=== PATIENT | female | born 1980 | race Caucasian/White ===

== ENCOUNTER 2016-02-24 14:56 | Inpatient (IN) | payer OTHER ==
[2016-02-24 15:32] LABS: MANUAL DIFF NEEDED? NO
[2016-02-24 15:33] LABS: BASO% 0.3 % (0.0-0.8); EOS# 0.16 X1000 (0.0-0.7); EOS% 1.4 % (0.0-10.0); HEMATOCRIT 32.8 % (37.0-47.0); HEMOGLOBIN 10.6 g/dL (12.0-16.0); IMM GRAN# 0.11 X1000 (0.0-0.04); IMM GRAN% 0.9 % (0.0-0.5); LYMPH# 2.35 X1000 (1.2-3.4); LYMPH% 20.1 % (20.5-51.1); MCH 24.3 PG (27-31); MCHC 32.3 g/dL (33-37); MCV 75.1 FL (81-99); MONO# 1.16 X1000 (0.11-0.59); MONO% 9.9 % (1.7-9.3); MPV 8.9 FL (7.4-10.4); NEUT% 67.4 % (42.2-75.2); PLT 479 X1000 (130-400); RBC 4.37 XMIL (4.2-5.4)
[2016-02-24 16:07] LABS: AGAP 11; ALBUMIN 3.3 g/dL (3.5-5.0); ALKALINE PHOSPHATASE 213 U/L (32-104); BUN 9 mg/dL (8-22); CALCIUM 8.6 mg/dL (8.8-10.2); CHLORIDE 102 mmol/L (98-107); COSMO 265; GOT 14 U/L (10-30); GPT 8 U/L (10-36); SODIUM 133 mmol/L (136-145); TCO2 21 mmol/L (25-35); TOTAL PROTEIN 6.6 g/dL (6.3-8.3); URIC ACID 3.6 mg/dL (2.4-5.7)
[2016-02-24] MEDS ORDERED: AMPICILLIN 2 GM/NS 100 ML IV ONE (16:18)
[2016-02-24] MEDS ORDERED: PEPCID IV PRN (16:18)
[2016-02-24] MEDS ORDERED: LR 500 ML IV ONE (16:18)
[2016-02-24] MEDS ORDERED: PEPCID PO ONE (16:18)
[2016-02-24] MEDS ORDERED: REGLAN PO ONE (16:18)
[2016-02-24] MEDS ORDERED: KEFZOL 1 GM/D5W 50 ML IV PRN (16:18)
[2016-02-24] MEDS ORDERED: PEPCID PO PRN (16:18)
[2016-02-24] MEDS ORDERED: STADOL IV PRN (16:18)
[2016-02-24] MEDS ORDERED: TYLENOL PO PRN (16:18)
[2016-02-24] MEDS ORDERED: SODIUM CHLORIDE 0.9% INJ SCH (16:30)
--- NOTE | 2016-02-24 17:27 | HISTORY AND PHYSICAL ---
CHIEF COMPLAINTS: secondary to elevated blood pressure. HISTORY OF PRESENT ILLNESS: This is a 35-year-old G2, P1-0-0-1 with IUP at 39+ 6 weeks by LMP consistent with 11+ 3 week ultrasound, EDC is 02/25/2016 who presents from clinic secondary to elevated blood pressure. The patient found to have blood pressure of 152s over 90s in clinic which she attributes to anxiety however prior this elevated blood pressure is noted as well. care thus far has been relatively uncomplicated. The patient did have positive HSV cultures little over a week ago. The patient notes a prior outbreak around 10 years ago however she has not had any outbreak since then and has not had any symptoms since that time. The patient has been at treated with acyclovir for over a week now. OBSTETRICAL HISTORY: G1, full-term vaginal delivery, G2 current. INSIDE SALES HISTORY: Denies sexually transmitted infections and notes positive abnormal Pap smears requiring cryo surgery. PAST MEDICAL HISTORY: Significant for anxiety. PAST SURGICAL HISTORY: Denies. MEDICATIONS: vitamins. ALLERGIES: NO KNOWN DRUG ALLERGIES. SOCIAL: Denies alcohol, tobacco or illicit drug use. FAMILY HISTORY: Significant for hypertension. REVIEW OF SYSTEMS: Negative. Patient denies headaches, vision changes or right upper quadrant pain, chest pain, shortness of breath, vaginal bleeding, loss of fluid. PHYSICAL EXAMINATION: GENERAL: Well-developed, well-nourished white female, no acute distress. HEENT: Pupils equally round and reactive to light. Extraocular muscle intact. CHEST: Clear to auscultation bilaterally. CV: Regular rate and rhythm. No murmurs, rubs, or gallops. ABDOMEN: Soft, nontender, gravid. Estimated weight by Cb 7 pounds 8 ounces. EXTREMITIES: No clubbing, cyanosis, or edema. SKIN: No focal lesions. NEURO: No focal deficits. PELVIC: Sterile speculum exam revealed no active lesions throughout. Cervix was 3-4 cm dilated, 50% effaced and -2 station soft and anterior. ASSESSMENT AND PLAN: 1. Intrauterine at 39+ 6 weeks. 2. Gestational hypertension. 3. History of herpes simplex virus, recent positive cultures however no active lesions or symptoms. 4. Group B strep positive. PLAN: Admit patient to [facility]. Will induce labor with Pitocin, will prophylax for GBS, will proceed forward with vaginal delivery since no active lesion. However since recent positive cultures will give IV acyclovir to err on side of caution. Patient counseled and given no symptoms risk of vertical transmission is extremely low, likely less than 1%. Patient agrees with that risk and would like to proceed forward.
[2016-02-24 18:13] LABS: LDH 178 U/L (135-214)
[2016-02-24] MEDS: LR 1,000 ML IV SCH ×2 (18:45→23:00)
[2016-02-24] MEDS: ZOVIRAX 500 MG in NS 100 ML IV SCH (18:47)
[2016-02-24] MEDS: PITOCIN 30 UNITS/LR 500 ML IV SCH (19:15)
[2016-02-24] MEDS ORDERED: XYLOCAINE-MPF 1% 5 ML ONE (19:34)
[2016-02-24] MEDS ORDERED: FENTANYL-BUPIV-NS 2 MCG-0.1% 200 ML ONE (19:35)
[2016-02-24] MEDS ORDERED: FENTANYL-BUPIV-NS 2 MCG-0.1% 200 ML EPIDURAL PRN (19:37)
[2016-02-24] MEDS ORDERED: FIORICET PO ONE (21:50)
[2016-02-24] MEDS: AMPICILLIN 1 GM/NS 50 ML IV SCH (23:00)
[2016-02-25] MEDS ORDERED: BENADRYL IV PRN ×2 (02:07→13:24)
[2016-02-25] MEDS: ZOVIRAX 500 MG in NS 100 ML IV SCH ×2 (02:33→10:30)
[2016-02-25] MEDS: AMPICILLIN 1 GM/NS 50 ML IV SCH ×3 (04:19→12:03)
[2016-02-25] MEDS: ZOFRAN IV PRN ×2 (04:48→14:45)
[2016-02-25] MEDS ORDERED: NUBAIN IV ONE (08:15)
[2016-02-25] MEDS ORDERED: NAROPIN 0.2% ONE (09:36)
[2016-02-25] MEDS ORDERED: NAROPIN 0.2% EPIDURAL ONE (10:45)
[2016-02-25] MEDS ORDERED: XYLOCAINE-MPF 1% ONE (10:55)
[2016-02-25] MEDS ORDERED: MINERAL OIL ONE (10:55)
[2016-02-25] MEDS: LR 1,000 ML IV SCH (11:06)
[2016-02-25] MEDS ORDERED: NORCO-5 PO PRN (13:24)
[2016-02-25] MEDS ORDERED: PITOCIN IM PRN (13:24)
[2016-02-25] MEDS ORDERED: CYTOTEC PO PRN (13:24)
[2016-02-25] MEDS ORDERED: M-M-R II VACCINE SUBQ ONE (13:24)
[2016-02-25] MEDS ORDERED: PERI MEDS (DERMOPLAST/NUPERCAINAL/TUCKS) MISC PRN (13:24)
[2016-02-25] MEDS ORDERED: BENADRYL PO PRN (13:24)
[2016-02-25] MEDS ORDERED: MINERAL OIL MISC PRN (13:24)
[2016-02-25] MEDS ORDERED: BOOSTRIX VACCINE IM ONE (13:24)
[2016-02-25] MEDS ORDERED: XYLOCAINE-MPF 1% INJ PRN (13:24)
[2016-02-25] MEDS ORDERED: HYDROXYZINE IM PRN (13:24)
[2016-02-25] MEDS ORDERED: PITOCIN 30 UNITS/LR 500 ML IV ONE (13:24)
[2016-02-25] MEDS ORDERED: PITOCIN 20 UNITS/LR 1,000 ML IV SCH (13:30)
[2016-02-25] MEDS: PITOCIN 30 UNITS/LR 500 ML IV SCH (13:34)
[2016-02-25] MEDS: PERICOLACE PO SCH (20:32)
[2016-02-25] MEDS: AMBIEN PO PRN (20:32)
[2016-02-25] MEDS: MOTRIN PO PRN (20:32)
[2016-02-25] MEDS: NORCO-10 PO PRN (20:33)
[2016-02-26] MEDS: NORCO-10 PO PRN ×4 (02:40→13:07)
[2016-02-26] MEDS: HYDROXYZINE PO PRN ×2 (03:34→22:11)
[2016-02-26] MEDS: MOTRIN PO PRN ×3 (03:38→18:37)
[2016-02-26 06:16] LABS: HEMATOCRIT 28.9 % (37.0-47.0); HEMOGLOBIN 9.1 g/dL (12.0-16.0); MCH 23.9 PG (27-31); MCHC 31.5 g/dL (33-37); MCV 76.1 FL (81-99); MPV 9.3 FL (7.4-10.4); RBC 3.8 XMIL (4.2-5.4)
[2016-02-26] MEDS: XANAX PO PRN ×3 (07:05→23:36)
[2016-02-26] MEDS: PERCOCET-10 PO PRN ×2 (17:32→21:22)
[2016-02-26] MEDS: PERICOLACE PO SCH (20:20)
[2016-02-26] MEDS: AMBIEN PO PRN (21:22)
[2016-02-27] MEDS: PERCOCET-10 PO PRN ×3 (00:31→09:22)
[2016-02-27 08:11] VITALS: BP 130/73
[2016-02-27] MEDS: MOTRIN PO PRN (09:21)
== END 2016-02-27 10:50 | disposition home or self-care (01) | DRG 774 ==
LOC: P.OPLD 14:56 → P.LD 14:59 → P.OPLD 16:45 → P.LD 16:46 → P.WC 02-25 16:10
PROVIDERS: ADMIT Obstetrics & Gynecology; ATTEND Obstetrics & Gynecology
PROC: 10E0XZZ Delivery of Products of Conception, External Approach (ICD-10-PCS; 2016-02-25)
PROC: 10907ZC Drainage of Amniotic Fluid, Therapeutic from Products of Conception, Via Natural or Artificial Opening (ICD-10-PCS; 2016-02-25)
PROC: 0KQM0ZZ Repair Perineum Muscle, Open Approach (ICD-10-PCS; principal; 2016-02-25 12:57)
DX: O13.3 Gestational [pregnancy-induced] hypertension without significant proteinuria, third trimester (principal); O98.32 Other infections with a predominantly sexual mode of transmission complicating childbirth; O99.824 Streptococcus B carrier state complicating childbirth; A60.00 Herpesviral infection of urogenital system, unspecified; O70.1 Second degree perineal laceration during delivery; O99.344 Other mental disorders complicating childbirth; F41.9 Anxiety disorder, unspecified; O66.0 Obstructed labor due to shoulder dystocia; Z3A.39 39 weeks gestation of pregnancy; Z37.0 Single live birth
CPT/HCPCS: 59025; 71020; 73000; 80053; 82016; 82017; 82128; 82139; 82247; 82261; 82775; 82776; 82948; 83020; 83021; 83498; 83520; 83615; 83789; 84030; 84437; 84443; 84510; 84550; 85025; 85027; 86592; 86880; 86900; 86901; 87040; 90715; 90744; J0133; J0290; J1200; J2300; J2405; J2590; J2795; J3430; J7120